=== PATIENT | female | born 1970 | race Two or more races ===

== ENCOUNTER → 2025-01-15 | Outpatient (CLI) | payer BC | LOC: M WHC 07:22 | PROVIDERS: ATTEND Specialist | DX: R92.2 Inconclusive mammogram (principal); N60.11 Diffuse cystic mastopathy of right breast; N60.12 Diffuse cystic mastopathy of left breast ==

== ENCOUNTER → 2025-04-30 | Outpatient (CLI) | payer BC | LOC: M RAD 12:43 | PROVIDERS: ATTEND Nurse Practitioner Family | DX: E07.89 Other specified disorders of thyroid (principal) ==